=== PATIENT | male | born 1955 | race Caucasian/White ===

== ENCOUNTER 2017-11-24 09:32 | Emergency (ER) | payer BC ==
--- NOTE | 2017-11-24 10:14 | ED ---
URI HPI - General Chief Complaint: Upper Respiratory Infection Stated Complaint: Rib pain Time Seen by Provider: 11/24/17 09:53 Source: patient, RN notes reviewed, old records reviewed Mode of arrival: ambulatory Limitations: no limitations - History of Present Illness Initial Comments: This is a 62-year-old male presents emergency Department chief complaint of right-sided rib pain for the past week. He reports that one week ago he bent over to lift a heavy pallet. He reports he felt something pop within his lower right rib cage. Patient states that the pain seemed to go away for a short time afterward however the past 2 days the pain has been worse with any position , touching the area or coughing. Patient reports that he feels that he's been coughing more frequently as well. Patient denies any recent fever or chills. Denies any nausea or vomiting or or abdominal pain. Denies any specific shortness of breath, diaphoresis, headache, or dizziness. - Related Data Previous Rx's Medication Instructions Recorded Cyclobenzaprine [Flexeril] 10 mg PO TID #15 tab 11/24/17 HYDROcodone/APAP 5-325MG [[place]ale 1 - 2 tab PO Q6HR PRN #15 tab 11/24/17 5-325] Promethazine/Dextromethorphan 5 ml PO TID #120 ml 11/24/17 [Phenergan DM Syrup] Allergies Allergy/AdvReac Type Severity Reaction Status Date / Time No Known Allergies Allergy Verified 11/24/17 09:58 Review of Systems ROS Statement: Those systems with pertinent positive or pertinent negative responses have been documented in the HPI. ROS Other: All systems not noted in ROS Statement are negative. Past Medical History Past Medical History: No Reported History History of Any Multi-Drug Resistant Organisms: None Reported Additional Past Surgical History / Comment(s): hernia repair x2, right elbow tendon repair, bowel resection as a baby Past Psychological History: No Psychological Hx Reported Smoking Status: Never smoker Past Alcohol Use History: None Reported Past Drug Use History: None Reported General Exam - General Exam Comments Initial Comments: 62-year-old male. No distress. Limitations: no limitations General appearance: alert, in no apparent distress Head exam: Present: atraumatic, normocephalic, normal inspection Eye exam: Present: normal appearance, PERRL, EOMI. Absent: scleral icterus, conjunctival injection, periorbital swelling ENT exam: Present: normal exam, mucous membranes moist Neck exam: Present: normal inspection. Absent: tenderness, meningismus, lymphadenopathy Respiratory exam: Present: normal lung sounds bilaterally, other (right lower rib tenderness to minimal palpation). Absent: respiratory distress, wheezes, rales, rhonchi, stridor Cardiovascular Exam: Present: regular rate, normal rhythm, normal heart sounds. Absent: systolic murmur, diastolic murmur, rubs, gallop, clicks GI/Abdominal exam: Present: soft, normal bowel sounds. Absent: distended, tenderness, guarding, rebound, rigid Extremities exam: Present: normal inspection, full ROM, normal capillary refill. Absent: tenderness, pedal edema, joint swelling, calf tenderness Back exam: Present: normal inspection Neurological exam: Present: alert, oriented X3, CN II-XII intact Psychiatric exam: Present: normal affect, normal mood Course Vital Signs 11/24/17 09:38 Temperature 99.5 F Pulse Rate 74 Respiratory 18 Rate Blood Pressure 120/70 O2 Sat by Pulse 95 Oximetry Medical Decision Making 11/24/17 11:18 EKG shows sinus bradycardia, ventricular 50 MB screen. MT interval 140. QRS duration 90 seconds. QT QTc is 420/460 [place]. Noticed this elevation or T- wave inversion. No suture ventricular arrhythmias. - Radiology Data Radiology results: report reviewed Chest x-rays reviewed and negative for any acute process. Disposition Clinical Impression: Costochondritis, Cough Disposition: HOME SELF-CARE Condition: Good Instructions: Costochondritis (ED) Additional Instructions: Advised to take Motrin, and pain medication. Patient should continue to take deep breaths. Recommended applying heating pads over the area as well. Return to the emergency department if any alarming signs or symptoms occur. Prescriptions: Cyclobenzaprine [Flexeril] 10 mg PO TID #15 tab HYDROcodone/APAP 5-325MG [[place] 5-325] 1 - 2 tab PO Q6HR PRN #15 tab PRN Reason: Pain Promethazine/Dextromethorphan [Phenergan DM Syrup] 5 ml PO TID #120 ml Referrals: Bishop Mccord III, MD [Primary Care Provider] - 1-2 days Time of Disposition: 11:22
--- NOTE | 2017-11-24 11:00 | XR ---
EXAMINATION TYPE: XR chest 2V DATE OF EXAM: 11/24/2017 COMPARISON: NONE HISTORY: Chest pain TECHNIQUE: Frontal and lateral views of the chest are obtained. FINDINGS: Heart and mediastinum are normal. Lungs are clear. Costophrenic angles are clear. There is spurring in the thoracic spine. IMPRESSION: No active cardiopulmonary disease.
[2017-11-24] MEDS ORDERED: CYCLOBENZAPRINE 10MG STARTER 3 TAB BTL PO STA (11:19)
[2017-11-24] MEDS ORDERED: ACET/COD 300 MG/30 MG STARTER PACK 6 TAB BTL PO STA (11:19)
[2017-11-24 11:55] VITALS: BP 140/67; PULSE 63; RESP 16; TEMP 97
== END 2017-11-24 11:58 | disposition home or self-care (01) ==
LOC: EC 09:32
DX: M94.0 Chondrocostal junction syndrome [Tietze] (principal); R05 Cough
CPT/HCPCS: 71020; 93005; 99284

== ENCOUNTER 2018-05-09 08:02 | Day surgery (SDC) | payer BC ==
[2018-05-07 15:18] VITALS: BMI 27.3
[~2018-05-09 08:02] MED LIST: LACTATED RINGERS 1,000 ML IV SCH
[2018-05-09 08:54] VITALS: RESP 16; TEMP 97.1
[2018-05-09] MEDS ORDERED: MIDAZOLAM 2 MG/2 ML VIAL ONE (09:11)
[2018-05-09] MEDS ORDERED: fentaNYL (PF) 50 MCG/ML 2 ML AMP ONE (09:11)
[2018-05-09] MEDS ORDERED: PROPOFOL 10 MG/ML 20 ML VIAL IV ONE (09:11)
--- NOTE | 2018-05-09 09:31 | P.PCN ---
Date of Procedure: 05/09/18 Procedure(s) Performed: BRIEF HISTORY: Patient is a 63-year-old pleasant white male, scheduled for an elective colonoscopy as a part of screening for colorectal neoplasia. PROCEDURE PERFORMED: Colonoscopy. PREOPERATIVE DIAGNOSIS: Screening for colon cancer. IV sedation per Anesthesia. PROCEDURE: After informed consent was obtained, the patient, was brought into the endoscopy unit. IV sedation was administered by Anesthesia under continuous monitoring. Digital rectal examination was normal. Initially the Olympus CF- 160 flexible video colonoscope was then inserted in the rectum, gradually advanced into the cecum without any difficulty. Careful examination was performed as the scope was gradually being withdrawn. Ileocecal valve and the appendiceal orifice were visualized and appeared normal. Prep was excellent. Mucosa of the cecum, ascending colon, transverse colon, descending colon, sigmoid colon, and rectum appeared normal. Scattered sigmoid tic versus seen. Retroflexion was performed in the rectum and no lesions were seen. The patient tolerated the procedure well. IMPRESSION: Normal-appearing colon from rectum to cecum with no evidence of colorectal neoplasia. Scattered sigmoidal ptosis. RECOMMENDATIONS: Findings of this examination were discussed with the patient as well as his family. He was advised to have a repeat screening colonoscopy in 10 years.
[2018-05-09 09:52] VITALS: BP 123/79; PULSE 50
== END 2018-05-09 10:12 | disposition home or self-care (01) ==
LOC: ORWHC2ENDO 08:02
PROVIDERS: ATTEND Internal Medicine Gastroenterology
DX: Z12.11 Encounter for screening for malignant neoplasm of colon (principal)
CPT/HCPCS: 45378; J2250; J3010; J2704